=== PATIENT | male | born 1975 | race Caucasian/White ===

== ENCOUNTER 2017-10-22 12:10 | Day surgery (SDC) | payer OTHER ==
[~2017-10-22] VITALS: Ht 177.8 cm; Wt 83.5 kg
[2017-10-22 13:13] VITALS: BP 114/84; PULSE 74; TEMP 97.5
[2017-10-22] MEDS ORDERED: PROBIOTIC-MAJOR PO (13:32)
[2017-10-22] MEDS ORDERED: EPA FISH OIL1 SGL PO (13:32)
[2017-10-22] MEDS ORDERED: PROZAC 20MG20 MG PO (13:33)
[2017-10-22] MEDS ORDERED: LOPID 600M600 MG/TAB PO (13:33)
[2017-10-22] MEDS ORDERED: MOTRIN 600600 MG/TAB PO (17:29)
[2017-10-22] MEDS ORDERED: COLACE 100100 MG/CAP PO (17:29)
[2017-10-22] MEDS ORDERED: NORCO 325 MG-51 TAB PO (17:29)
[2017-10-22 18:10] VITALS: BP 111/73; PULSE 81; TEMP 98.6
[2017-10-22 18:21] VITALS: TEMP 97.5
[2017-10-22 19:25] VITALS: BP 112/74; PULSE 85
[2017-10-22 19:55] VITALS: BP 115/91; PULSE 84
[2017-10-22 20:35] VITALS: BP 130/71; PULSE 97
== END 2017-10-22 20:45 | disposition home or self-care (01) ==
LOC: SDCO 12:10 → SURG 18:41 → SDCO 20:45
DX: K40.20 Bilateral inguinal hernia, without obstruction or gangrene, not specified as recurrent (principal); F43.10 Post-traumatic stress disorder, unspecified; Z79.899 Other long term (current) drug therapy; D17.6 Benign lipomatous neoplasm of spermatic cord
CPT/HCPCS: OP; A4314; C1781; J0690; J1100; J1885; J2405; J2704; J3010; J7120